=== PATIENT | female | born 1990 | race Caucasian/White ===

== ENCOUNTER 2019-04-02 10:43 | Emergency (ER) | payer OTHER ==
[~2019-04-02] VITALS: Ht 165.1 cm; Wt 61.2 kg
[2019-04-02 11:44] LABS: *URINE HCG, QUAL NEGATIVE (NEGATIVE)
--- NOTE | 2019-04-02 12:19 | NUR ---
Patient discharged to home in stable conditon. Written and verbal after care instructions given to patient. Patient verbalizes understanding of instructions. Patient left ER with brisk steady gait.
== END 2019-04-02 12:20 | disposition home or self-care (01) ==
LOC: ER 10:43
DX: K05.219 Aggressive periodontitis, localized, unspecified severity (principal); J06.9 Acute upper respiratory infection, unspecified; B97.89 Other viral agents as the cause of diseases classified elsewhere
CPT/HCPCS: 84703; A4663

== ENCOUNTER 2019-05-15 21:28 | Emergency (ER) | payer OTHER ==
[~2019-05-15] VITALS: Ht 165.1 cm; Wt 61.2 kg
[2019-05-15] MEDS ORDERED: IV NORMAL SALINE 1000 ML BAG IV ONE (23:00)
[2019-05-15] MEDS ORDERED: LOPERAMIDE HCL 2 MG CAPSULE PO ONE (23:00)
[2019-05-15] MEDS ORDERED: MECLIZINE HCL 25 MG TABLET PO ONE (23:00)
[2019-05-15] MEDS ORDERED: MECLIZINE HCL 25 MG TABLET ONE (23:10)
[2019-05-15] MEDS ORDERED: LOPERAMIDE HCL 2 MG CAPSULE ONE ×2 (23:10→23:11)
--- NOTE | 2019-05-15 23:10 | NUR ---
PATIENT REFUSED TO TAKE IMMODIUM AND ANTIVERT. STATES "I DON'T NEED IT NOW."
[2019-05-15 23:17] LABS: BASOPHILS % (AUTO) 0.8 % (0.0-2.0); EOSINOPHILS # (AUTO) 0.1 K/uL (0.0-0.7); EOSINOPHILS % (AUTO) 1.8 % (0.0-7.0); HEMATOCRIT 43.5 % (31.2-41.9); HEMOGLOBIN 14.4 g/dL (10.9-14.3); LYMPHOCYTES # (AUTO) 2.5 K/uL (20.0-40.0); LYMPHOCYTES % (AUTO) 44.7 % (20.5-51.5); MEAN CORPUSCULAR HEMOGLOBIN 29.5 uug (24.7-32.8); MEAN CORPUSCULAR HGB CONC 33 g/dL (32.3-35.6); MEAN CORPUSCULAR VOLUME 88.9 fL (75.5-95.3); MONOCYTES # (AUTO) 0.6 K/uL (2.0-10.0); MONOCYTES % (AUTO) 10.4 % (0.0-11.0); NEUTROPHILS # (AUTO) 2.4 K/uL (1.8-8.9); NEUTROPHILS % (AUTO) 42.3 % (38.5-71.5); PLATELET COUNT (AUTO) 221 K/uL (179-408); RED BLOOD CELL COUNT(AUTO) 4.89 MIL/uL (3.63-4.92); WHITE BLOOD COUNT (AUTO) 5.6 K/uL (3.8-11.8)
[2019-05-15 23:19] LABS: CREATININE 0.9 mg/dL (0.6-1.3); POTASSIUM 3.6 mmol/L (3.5-5.1)
[2019-05-15 23:30] LABS: BILIRUBIN,DIRECT 0.2 mg/dL (0.0-0.2); BILIRUBIN,TOTAL 0.9 mg/dL (0.2-1.0)
[2019-05-15 23:48] LABS: *BILIRUBIN,URIN NEGATIVE (NEGATIVE); *BLOOD, URINE NEGATIVE (NEGATIVE); *CLARITY,URINE CLEAR (CLEAR); *COLOR,URINE YELLOW (YELLOW); *KETONES,URINE NEGATIVE (NEGATIVE); *UROBILINOGEN,URINE 0.2 E.U./dl (NORMAL); LEUKOCYTE ESTERASE ,URINE NEGATIVE (NEGATIVE); NITRITE, URINE NEGATIVE (NEGATIVE); PH,URINE 5.5 (5.0-8.0); UGLUCOSE NEGATIVE (NEGATIVE)
[2019-05-15 23:49] LABS: *URINE HCG, QUAL NEGATIVE (NEGATIVE)
--- NOTE | 2019-05-16 00:20 | NUR ---
IV removed. Catheter intact and site benign. Pressure and 4x4 gauze applied to site. No bleeding noted.
--- NOTE | 2019-05-16 00:39 | NUR ---
Patient discharged to home in stable conditon. Written and verbal after care instructions given. Patient verbalizes understanding of instructions. WALKED OUT OF ER WITH NO DISTRESS NOTED
[2019-05-16 00:40] VITALS: BP 135/85
== END 2019-05-16 00:41 | disposition home or self-care (01) ==
LOC: ER 21:28
DX: R42 Dizziness and giddiness (principal); L03.316 Cellulitis of umbilicus; R19.7 Diarrhea, unspecified; I10 Essential (primary) hypertension
CPT/HCPCS: 36415; 84703; 85025; 93005; A4663; J7030; J8597

== ENCOUNTER 2019-06-14 21:22 | Emergency (ER) | payer OTHER ==
[~2019-06-14] VITALS: Ht 165.1 cm; Wt 60.3 kg
--- NOTE | 2019-06-14 21:55 | NUR ---
DR GIPSON INTO DO RECTAL EXAM WITH [employer] [facility] [employer]
--- NOTE | 2019-06-14 22:10 | NUR ---
Patient discharged to home in stable conditon. Written and verbal after care instructions given. Patient verbalizes understanding of instructions. WALKED OUT OF ER WITH NO DISTRESS NOTED
[2019-06-14 22:21] VITALS: BP 150/102
== END 2019-06-14 22:48 | disposition home or self-care (01) ==
LOC: ER 21:24
DX: K62.5 Hemorrhage of anus and rectum (principal); K60.2 Anal fissure, unspecified
CPT/HCPCS: A4663

== ENCOUNTER 2023-03-15 12:31 | Emergency (ER) | payer OTHER ==
[~2023-03-15] VITALS: Ht 167.6 cm; Wt 58.1 kg
--- NOTE | 2023-03-15 13:02 | NUR ---
patient walk in to er for hypertension evaluation denies sob abdominal pain nausea vomiting
[2023-03-15 13:13] LABS: HEMATOCRIT 44.8 % (31.2-41.9); MEAN CORPUSCULAR HEMOGLOBIN 30.2 uug (24.7-32.8); MEAN CORPUSCULAR VOLUME 90.6 fL (75.5-95.3); PLATELET COUNT (AUTO) 216 K/uL (179-408)
[2023-03-15 13:26] LABS: CREATININE 0.9 mg/dL (0.6-1.3); POTASSIUM 4.3 mmol/L (3.5-5.1)
[2023-03-15 13:31] LABS: BILIRUBIN,TOTAL 1.1 mg/dL (0.2-1.0); MAGNESIUM 2.1 mg/dL (1.8-2.4); PHOSPHOROUS 3.4 mg/dL (2.5-4.9); TOTAL PROTEIN, SERUM 8.2 g/dL (6.4-8.2)
[2023-03-15 13:51] LABS: *BILIRUBIN,URIN NEGATIVE (NEGATIVE); *BLOOD, URINE NEGATIVE (NEGATIVE); *CLARITY,URINE CLEAR (CLEAR); *COLOR,URINE YELLOW (YELLOW); *KETONES,URINE 1+ (NEGATIVE); *UROBILINOGEN,URINE 0.2 E.U./dl (NORMAL); LEUKOCYTE ESTERASE ,URINE NEGATIVE (NEGATIVE); NITRITE, URINE NEGATIVE (NEGATIVE); UGLUCOSE NEGATIVE (NEGATIVE)
[2023-03-15 14:04] LABS: *URINE HCG, QUAL NEGATIVE (NEGATIVE)
[2023-03-15 14:07] LABS: *AMPHETAMINE, URINE NEGATIVE (NEGATIVE); *CANNABINOID, URINE NEGATIVE (NEGATIVE); *COCCAINE, URINE NEGATIVE (NEGATIVE); *PHENCYCLIDINE SCREEN,URINE NEGATIVE (NEGATIVE)
[2023-03-15] MEDS ORDERED: ONDANSETRON ODT 4 MG TAB.RAPDIS SL ONE (14:30)
[2023-03-15] MEDS ORDERED: MECLIZINE HCL 25 MG TABLET PO ONE (14:30)
[2023-03-15] MEDS ORDERED: MECLIZINE HCL 25 MG TABLET ONE (15:03)
[2023-03-15] MEDS ORDERED: ONDANSETRON ODT 4 MG TAB.RAPDIS ONE (15:03)
--- NOTE | 2023-03-15 15:09 | NUR ---
patient reassess condition stable d/c home with instructions after care reviewed understood left er ambulatory with steady gait.
[2023-03-15] MEDS ORDERED: ONDA4TAB5 PO (15:16)
[2023-03-15] MEDS ORDERED: MECL-115 PO (15:18)
[2023-03-15] MEDS ORDERED: AMLO2.5T2 PO (15:19)
== END 2023-03-15 15:33 | disposition home or self-care (01) ==
LOC: ER 12:31
DX: I10 Essential (primary) hypertension (principal); R07.89 Other chest pain; Z79.899 Other long term (current) drug therapy
CPT/HCPCS: 36415; 71045; 83735; 84100; 84484; 84703; 85025; 93005; A4663; J8597; Q0162

== ENCOUNTER 2023-08-29 21:23 | Emergency (ER) | payer OTHER ==
[~2023-08-29] VITALS: Ht 167.6 cm; Wt 58.1 kg
[~2023-08-29 21:23] MED LIST: AMLO2.5T2 PO; MECL-115 PO; ONDA4TAB5 PO
[2023-08-29 21:26] VITALS: O2SAT 100
[2023-08-29 22:06] LABS: *BILIRUBIN,URIN NEGATIVE (NEGATIVE); *BLOOD, URINE NEGATIVE (NEGATIVE); *CLARITY,URINE CLEAR (CLEAR); *COLOR,URINE YELLOW (YELLOW); *KETONES,URINE NEGATIVE (NEGATIVE); *PROTEIN,URINE NEGATIVE (NEGATIVE); *UROBILINOGEN,URINE 0.2 E.U./dl (NORMAL); LEUKOCYTE ESTERASE ,URINE NEGATIVE (NEGATIVE); NITRITE, URINE NEGATIVE (NEGATIVE); UGLUCOSE NEGATIVE (NEGATIVE)
[2023-08-29 22:31] LABS: *URINE HCG, QUAL NEGATIVE (NEGATIVE)
[2023-08-29] MEDS ORDERED: NYST15CR15 TP (22:53)
[2023-08-29] MEDS ORDERED: FLUCONAZOLE 100 MG TABLET ONE (22:58)
[2023-08-29] MEDS ORDERED: FLUCONAZOLE 100 MG TABLET PO ONE (23:00)
== END 2023-08-29 23:18 | disposition home or self-care (01) ==
LOC: ER 21:24
DX: N76.0 Acute vaginitis (principal); Z91.018 Allergy to other foods; Z79.899 Other long term (current) drug therapy
CPT/HCPCS: 84703; 87491; A4606; A4663

== ENCOUNTER 2024-03-20 09:33 | Emergency (ER) | payer OTHER ==
[~2024-03-20] VITALS: Ht 167.6 cm; Wt 59.9 kg
[~2024-03-20 09:33] MED LIST changes: +NYST15CR15 TP
[2024-03-20] MEDS ORDERED: AMLO-212 PO (09:48)
[2024-03-20 10:17] VITALS: BP 128/99; O2SAT 100
== END 2024-03-20 10:20 | disposition home or self-care (01) ==
LOC: ER 09:33
DX: H53.8 Other visual disturbances (principal); Z79.899 Other long term (current) drug therapy; Z91.018 Allergy to other foods
CPT/HCPCS: A4606; A4663